=== PATIENT | male | born 1960 | race African-American/Black ===

== ENCOUNTER 2018-05-05 19:37 | Inpatient (IN) | payer MEDICARE, MEDICAID ==
[~2018-05-05] VITALS: Ht 175.3 cm; Wt 82.6 kg
[~2018-05-05 19:37] MED LIST: ASPIRIN EC81 MG ORAL; BENADRYL50 MG ORAL; CATAPRES0.2 MG ORAL; CLONIDINE 0.2M0.2 MG ORAL; DEPAKOTE250 MG PO; DOCUSATE SODIU100 MG ORAL; EPIVIR150 MG ORAL; GUAIFENESIN-DM S5 ML PO; HYDROXYZINE HCL10 M1 PO; INTELENCE100 MG ORAL; ISENTRESS400 MG ORAL; KEPPRA500 MG ORAL; MEPRON750 MG/51 ORAL; METOPROLOL TART50 M1 ORAL; MUPIROCIN22 GM TOPIC; NORCO 5-325 TA1 EACH ORAL; NORVASC10 MG ORAL; ONDANSETRON ODT4 MG ORAL; PROCRIT10000 UNIT SUBQ; RENAGEL400 MG ORAL; TYLENOL650 MG/20. ORAL
[2018-05-05 19:40] VITALS: BP 140/80
[2018-05-05] MEDS ORDERED: LAMIVUDINE150 MG ORAL (20:21)
[2018-05-05] MEDS ORDERED: DESYREL50 MG PO (20:21)
[2018-05-05] MEDS ORDERED: VITAMIN D1000 UNI1 ORAL (20:21)
[2018-05-05] MEDS ORDERED: CALCIUM ACETAT667 M1 PO (20:21)
[2018-05-05] MEDS ORDERED: LACTULOSE10 GM/153 PO (20:21)
[2018-05-05] MEDS ORDERED: DILAUDID 00.5 MG/0.1 IJ (20:21)
[2018-05-05] MEDS ORDERED: INTELENCE200 MG ORAL (20:21)
[2018-05-05] MEDS ORDERED: NEURONTIN300 MG ORAL (20:21)
[2018-05-05] MEDS ORDERED: TEMAZEPAM15 MG ORAL (20:21)
[2018-05-05] MEDS ORDERED: RENVELA800 MG ORAL (20:21)
[2018-05-05] MEDS ORDERED: PAROXETINE HCL20 MG PO (20:21)
[2018-05-05] MEDS ORDERED: SIMETHICONE80 M1 PO ×2 (20:21)
[2018-05-05] MEDS ORDERED: Norco 5mg/325mg tab PO ONE (20:30)
[2018-05-05 20:36] LABS: ANION GAP 9 mmol/L (5-15); BASOPHILS % (AUTO) 1.1 % (0.0-2.0); BLOOD UREA NITROGEN 48 mg/dL (7-18); CALCIUM 9.4 MG/DL (8.5-10.1); CARBON DIOXIDE 30 MMOL/L (21-32); CHLORIDE 95 MMOL/L (98-107); CREATININE 11.9 MG/DL (0.55-1.30); EOSINOPHILS % (AUTO) 2.4 % (0.0-3.0); HEMATOCRIT 31.4 % (42.0-52.0); HEMOGLOBIN 10.9 G/DL (14.2-18.0); MEAN CORPUSCULAR VOLUME 94 FL (80-99); NEUTROPHILS % (AUTO) 65.4 % (45.0-75.0); PLATELET COUNT 201 K/UL (150-450); POTASSIUM 4.8 MMOL/L (3.5-5.1); RED BLOOD COUNT 3.32 M/UL (4.70-6.10); RED CELL DISTRIBUTION WIDTH 13.5 % (11.6-14.8); SODIUM 134 MMOL/L (136-145); WHITE BLOOD COUNT 6.4 K/UL (4.8-10.8)
[2018-05-05 20:41] LABS: ALANINE AMINOTRANSFERASE 40 U/L (12-78); ALBUMIN 3.5 G/DL (3.4-5.0); ALBUMIN/GLOBULIN RATIO 0.6 (1.0-2.7); ALKALINE PHOSPHATASE 100 U/L (46-116); ASPARTATE AMINO TRANSFERASE 34 U/L (15-37); BILIRUBIN,TOTAL 0.4 MG/DL (0.2-1.0)
[2018-05-05] MEDS ORDERED: Acetaminophen 650mg/20.3ml ORAL PRN (22:45)
--- NOTE | 2018-05-05 22:58 | Emergency Room Report ---
History of Present Illness General Chief Complaint: Pain Source: Patient, Medical Record Present Illness HPI 58-year-old male presents ED for evaluation. Sent here from assisted facility for evaluation of right leg pain and right shoulder pain. States she' s been having the symptoms for the last month. Denies any trauma. States pain started with his right ankle and is getting progressively worse. Radiating up to his hip. Sharp, 10 out of 10. Unable to bear weight. Also complaining of pain to his right shoulder. States he's been evaluated by multiple doctors but states that symptoms are not improving. Denies leg swelling. Denies chest pain or shortness of breath. History of end-stage renal disease. Compliant with his dialysis. No other aggravating relieving factors. Denies any other associated symptoms Allergies: Coded Allergies: MORPHINE (Verified Allergy, Unknown, 05/05/18) Skin reaction Patient History Past Medical History: HTN, seizures, renal disease, dialysis Past Surgical History: none Pertinent Family History: none Social History: Denies: smoking, alcohol use, drug use Immunizations: UTD Reviewed Nursing Documentation: PMH: Agreed; PSxH: Agreed Nursing Documentation-PMH Past Medical History: No History, Except For Hx Cardiac Problems: Yes Hx Hypertension: Yes Hx Cancer: No Hx Gastrointestinal Problems: Yes - pancreatitis Hx Dialysis: Yes - ESRD, anemia in CKD Hx Neurological Problems: No Hx Seizures: Yes - epilepsy Hx Headaches: Yes Review of Systems All Other Systems: negative except mentioned in HPI Physical Exam Vital Signs Date Time Temp Pulse Resp B/P (MAP) Pulse Ox O2 Delivery O2 Flow Rate FiO2 05/05/18 19:31 98.8 87 16 133/88 91 Room Air Sp02 EP Interpretation: reviewed, normal General Appearance: no apparent distress, alert, GCS 15, non-toxic Head: normocephalic, atraumatic Eyes: bilateral eye normal inspection, bilateral eye PERRL ENT: hearing grossly normal, normal pharynx, no angioedema, normal voice Neck: full range of motion, supple/symm/no masses Respiratory: chest non-tender, lungs clear, normal breath sounds, speaking full sentences Cardiovascular #1: regular rate, rhythm, no edema Cardiovascular #2: 2+ carotid (R), 2+ carotid (L), 2+ radial (R), 2+ radial (L) , 2+ dorsalis pedis (R), 2+ dorsalis pedis (L) Gastrointestinal: normal bowel sounds, non tender, soft, non-distended, no guarding, no rebound Rectal: deferred Genitourinary: normal inspection, no CVA tenderness Musculoskeletal: back normal, gait/station normal, normal range of motion, calf tenderness, tender - R shoulder Neurologic: alert, oriented x3, responsive, motor strength/tone normal, sensory intact, speech normal Psychiatric: judgement/insight normal, memory normal, mood/affect normal, no suicidal/homicidal ideation Reflexes: 3+ bicep (R), 3+ bicep (L), 3+ tricep (R), 3+ tricep (L), 3+ knee (R) , 3+ knee (L) Skin: normal color, no rash, warm/dry, well hydrated Lymphatic: no adenopathy Medical Decision Making Diagnostic Impression: Primary Impression: Intractable pain Additional Impression: ESRD on dialysis ER Course Hospital Course 58 yo M presents to ED c/o RLE pain. 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 After initial history and physical I ordered labs, pain meds and imaging studies Labs - no leukocytosis, Hb/Hct stable. bun/cr elevated CT L-spine shows DJD CT pelvis unremarkable Right shoulder x-ray negative Right lower extremity venous duplex negative discussed findings with patient. Patient states he is still unable to walk. Still has pain. Case discussed with and he agreed to accept the patient to his service for further care and support I feel this is a highly complex case requiring extensive working including EKG/ Rhythm strip, Xray/CT/US, Blood/urine lab work, repeat exams while in ED, and administration of strong opiates/narcotics for pain control, admission to hospital or close patient follow up. Diagnosis -intractable pain, ERSD on dilaysis Patient admitted to floor in serious condition Labs Test 05/05/18 20:10 White Blood Count 6.4 K/UL (4.8-10.8) Red Blood Count 3.32 M/UL (4.70-6.10) Hemoglobin 10.9 G/DL (14.2-18.0) Hematocrit 31.4 % (42.0-52.0) Mean Corpuscular Volume 94 FL (80-99) Mean Corpuscular Hemoglobin 32.8 PG (27.0-31.0) Mean Corpuscular Hemoglobin Concent 34.8 G/DL (32.0-36.0) Red Cell Distribution Width 13.5 % (11.6-14.8) Platelet Count 201 K/UL (150-450) Mean Platelet Volume 5.3 FL (6.5-10.1) Neutrophils (%) (Auto) 65.4 % (45.0-75.0) Lymphocytes (%) (Auto) 22.0 % (20.0-45.0) Monocytes (%) (Auto) 9.0 % (1.0-10.0) Eosinophils (%) (Auto) 2.4 % (0.0-3.0) Basophils (%) (Auto) 1.1 % (0.0-2.0) Sodium Level 134 MMOL/L (136-145) Potassium Level 4.8 MMOL/L (3.5-5.1) Chloride Level 95 MMOL/L (98-107) Carbon Dioxide Level 30 MMOL/L (21-32) Anion Gap 9 mmol/L (5-15) Blood Urea Nitrogen 48 mg/dL (7-18) Creatinine 11.9 MG/DL (0.55-1.30) Estimat Glomerular Filtration Rate 5.3 mL/min (>60) Glucose Level 110 MG/DL (74-106) Calcium Level 9.4 MG/DL (8.5-10.1) Total Bilirubin 0.4 MG/DL (0.2-1.0) Aspartate Amino Transf (AST/SGOT) 34 U/L (15-37) Alanine Aminotransferase (ALT/SGPT) 40 U/L (12-78) Alkaline Phosphatase 100 U/L (46-116) Total Protein 9.3 G/DL (6.4-8.2) Albumin 3.5 G/DL (3.4-5.0) Globulin 5.8 g/dL Albumin/Globulin Ratio 0.6 (1.0-2.7) Other X-Ray Diagnostic Results Other X-Ray Diagnostic Results : X-Ray ordered: R shoulder # of Views/Limited Vs Complete: 3 View Indication: Pain EP Interpretation: Yes Interpretation: no dislocation, no soft tissue swelling, no fractures Impression: No acute disease Electronically Signed by: Electronically signed by Salbador Irizarry MD CT/MRI/US Diagnostic Results CT/MRI/US Diagnostic Results #1: Imaging Test Ordered: CT L spine Impression DJD. no acute process CT/MRI/US Diagnostic Results #2: Imaging Test Ordered: CT Pelvis Impression no acute process CT/MRI/US Diagnostic Results #3: Imaging Test Ordered: Venous Duplex Impression no evidence of DVT to RLE Last Vital Signs Date Time Temp Pulse Resp B/P (MAP) Pulse Ox O2 Delivery O2 Flow Rate FiO2 05/05/18 19:40 98.9 82 19 140/80 98 Nasal Cannula Status: improved Disposition: ADMITTED INPATIENT Condition: Serious Referrals: NON PHYSICIAN (PCP) Salbador Irizarry MD May 05, 2018 22:58
[2018-05-05 23:20] VITALS: BP 137/77
[2018-05-06 00:05] VITALS: BP 148/87
[2018-05-06] MEDS: HYDROmorphone 2mg tab ORAL PRN ×3 (00:42→15:53)
[2018-05-06 04:00] VITALS: BP 143/82
[2018-05-06 08:00] VITALS: BP 143/90
[2018-05-06] MEDS: PARoxetine 20mg tab ORAL SCH ×2 (08:23→08:40)
[2018-05-06] MEDS: Aspirin EC 81mg tab ORAL SCH (08:47)
[2018-05-06] MEDS ORDERED: cloNIDine 0.2mg Tab ORAL SCH (09:00)
[2018-05-06] MEDS: Isentress 400mg tab ORAL SCH ×2 (09:18→20:51)
[2018-05-06] MEDS: Etravirine 100mg tab ORAL SCH ×2 (09:18→20:51)
[2018-05-06] MEDS: Atovaquone 750mg/5ml Susp ORAL SCH ×2 (09:19→17:24)
--- NOTE | 2018-05-06 09:44 | History and Physical ---
History of Present Illness General Date patient seen: May 06, 2018 Time patient seen: 09:18 Reason for Hospitalization: Pain Present Illness HPI 58 yo male with h/o esrd on hd presents from SNF for right leg and shoulder pain. States this has been going on for the past month and has been worsening. Denies trauma. states pain is 10/10 in severity. Patient states it feels like pain is radiating down his leg, hurts to move right leg, says when he walks feels like shooting pain. Denies any swelling of the leg, denies cp or sob. patient underwent thorough imaging in ED.CT L-spine shows DJD, CT pelvis unremarkable, Right shoulder x-ray negative, Right lower extremity venous duplex negative social hx: reviewed, denies any smoking, drinking or drug use fam hx: reviewed, denies any sig past fam hx code status reviewed, FULL CODE. Allergies: Coded Allergies: MORPHINE (Verified Allergy, Unknown, 05/05/18) Skin reaction Medication History Scheduled Amlodipine Besylate (Norvasc), 10 MG ORAL DAILY, (Reported) Amlodipine Besylate (Norvasc), 2.5 MG ORAL DAILY, (Reported) Aspirin Ec* (Aspirin Ec*), 81 MG ORAL DAILY, (Reported) Atovaquone* (Mepron*), 750 MG ORAL TWICE A DAY, (Reported) Atovaquone* (Mepron*), 1,500 MG ORAL DAILY, (Reported) Calcium Acetate (Calcium Acetate), 667 MG PO BID, (Reported) Cholecalciferol (Vitamin D3)* (Vitamin D*), 1,000 UNIT ORAL DAILY, (Reported) Clonidine HCl (Clonidine HCl), 0.2 MG ORAL EVERY 12 HOURS, (Reported) Divalproex Sodium* (Depakote*), 250 MG PO Q12HR, (Reported) Docusate Sodium* (Docusate Sodium*), 100 MG ORAL TWICE A DAY, (Reported) Epoetin Dario (Procrit), 10,000 UNIT SUBQ 3XW, (Reported) Etravirine (Intelence), 200 MG ORAL BID, (Reported) Gabapentin (Neurontin), 300 MG ORAL THREE TIMES A DAY, (Reported) Guaifenesin/Dextromethorphan (Guaifenesin-Dm Solution), 10 ML PO Q4HR, (Reported ) Lamivudine (Lamivudine), 150 MG ORAL 3XW, (Reported) Levetiracetam (Keppra), 500 MG ORAL EVERY 12 HOURS, (Reported) Mupirocin* (Mupirocin*), 1 APPLIC TOPIC BID, (Reported) Paroxetine Hcl* (Paxil*), 20 MG PO DAILY, (Reported) Raltegravir (Isentress), 400 MG ORAL Q12HR, (Reported) Sevelamer Carbonate (Renvela), 800 MG ORAL BID, (Reported) Sevelamer HCl (Renagel), 800 MG ORAL THREE TIMES A DAY, (Reported) Temazepam (Temazepam*), 15 MG ORAL BEDTIME, (Reported) Trazodone Hcl (Desyrel), 50 MG PO DAILY, (Reported) Scheduled PRN Acetaminophen (Acetaminophen), 650 MG ORAL Q6H PRN for Prn Headache/Temp > 101, (Reported) Diphenhydramine HCl (Diphenhydramine HCl), 50 MG ORAL Q6H PRN for Itching, ( Reported) Hydrocodone Bit/Acetaminophen 5-325* (Stafford 5-325*), 1 TAB ORAL Q6H PRN for For Pain, (Reported) Ondansetron Odt* (Zofran Odt*), 4 MG ORAL Q6HR PRN for Nausea & Vomiting, ( Reported) Miscellaneous Medications Hydromorphone HCl/Pf (Dilaudid 0.5 mg/0.5 ml Syringe), 0.5 MG IJ, (Reported) Hydroxyzine Hcl (Hydroxyzine Hcl), MG PO, (Reported) Lactulose (Lactulose), 10 GM PO, (Reported) Simethicone (Simethicone), 80 MG PO, (Reported) Patient History History Provided By: Patient Healthcare decision maker Resuscitation status Full Code Advanced Directive on File Yes Review of Systems Constitutional: Denies: chills, sweats, fever, malaise, weakness Eye: Denies: eye pain, blurred vision, tearing, double vision, nose pain, nose congestion, acuity changes, discharge ENT: Denies: ear pain, ear discharge, nose pain, nose congestion, throat pain, throat swelling, mouth pain, hearing loss, nasal discharge, other Respiratory: Denies: cough, orthopnea, shortness of breath, stridor, wheezing, DE, sputum Cardiovascular: Denies: chest pain, edema, palpitations, syncope, PND Gastrointestinal: Denies: abdominal pain, constipation, diarrhea, nausea, vomiting, melena, hematemesis Genitourinary: Reports: other; Denies: discharge, dysuria, frequency, hematuria , pain, retention, incontinence, urgency, vag bleed/dc Musculoskeletal: Reports: back pain, other - right leg pain. right shoulder pain; Denies: gout, joint pain, joint swelling, muscle pain, muscle stiffness Skin: Denies: rash, change in color, change in hair/nails, dryness, lesions Psychiatric: Denies: prior hx, anxiety, depressed feelings, emotional problems , SI, HI, hallucinations Neurological: Denies: headache, numbness, paresthesia, seizure, tingling, tremors, focal weakness, syncope, dizziness Endocrine: Denies: excessive sweating, flushing, intolerance to temperature, increased thirst, increased urine, unexplained weight loss Hematologic/Lymphatic: Reports: no symptoms; Denies: anemia, blood clots, easy bleeding, easy bruising, swollen glands, diathesis Physical Exam General Appearance: WD/WN, no apparent distress, alert Lines, tubes and drains: peripheral HEENT: normocephalic, atraumatic, anicteric Neck: non-tender, normal alignment, supple, normal inspection Respiratory/Chest: chest wall non-tender, lungs clear, normal breath sounds, no respiratory distress, no accessory muscle use Cardiovascular/Chest: normal peripheral pulses, normal rate, regular rhythm Abdomen: normal bowel sounds, non tender, soft, no organomegaly, no mass Extremities: normal range of motion - +TTP right piriformis muscle, pain radiating down his leg, pain in back radiating to the foot when lifting right leg up. strength intact. 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, no motor/sensory deficits, alert, oriented x 3 Musculoskeletal: normal muscle bulk Last 24 Hour Vital Signs Date Time Temp Pulse Resp B/P (MAP) Pulse Ox O2 Delivery O2 Flow Rate FiO2 05/06/18 08:45 143/90 05/06/18 08:39 71 143/90 05/06/18 08:00 96.8 71 18 143/90 (107) 97 05/06/18 04:00 98.0 69 17 143/82 (102) 97 05/06/18 01:12 98.6 05/06/18 00:05 Room Air 05/06/18 00:05 98.6 79 18 148/87 (107) 96 05/05/18 23:44 97.5 77 19 137/77 100 Room Air 05/05/18 23:20 97.5 77 19 137/77 100 Room Air 05/05/18 19:40 98.9 82 19 140/80 98 Nasal Cannula 05/05/18 19:31 98.8 87 16 133/88 91 Room Air Intake and Output 05/05/18 05/06/18 19:00 07:00 Intake Total 730 ml Balance 730 ml Intake Oral 730 ml # Voids 1 Laboratory Tests Test 05/05/18 20:10 White Blood Count 6.4 K/UL (4.8-10.8) Red Blood Count 3.32 M/UL (4.70-6.10) L Hemoglobin 10.9 G/DL (14.2-18.0) L Hematocrit 31.4 % (42.0-52.0) L Mean Corpuscular Volume 94 FL (80-99) Mean Corpuscular Hemoglobin 32.8 PG (27.0-31.0) H Mean Corpuscular Hemoglobin Concent 34.8 G/DL (32.0-36.0) Red Cell Distribution Width 13.5 % (11.6-14.8) Platelet Count 201 K/UL (150-450) Mean Platelet Volume 5.3 FL (6.5-10.1) L Neutrophils (%) (Auto) 65.4 % (45.0-75.0) Lymphocytes (%) (Auto) 22.0 % (20.0-45.0) Monocytes (%) (Auto) 9.0 % (1.0-10.0) Eosinophils (%) (Auto) 2.4 % (0.0-3.0) Basophils (%) (Auto) 1.1 % (0.0-2.0) Sodium Level 134 MMOL/L (136-145) L Potassium Level 4.8 MMOL/L (3.5-5.1) Chloride Level 95 MMOL/L (98-107) L Carbon Dioxide Level 30 MMOL/L (21-32) Anion Gap 9 mmol/L (5-15) Blood Urea Nitrogen 48 mg/dL (7-18) H Creatinine 11.9 MG/DL (0.55-1.30) H Estimat Glomerular Filtration Rate 5.3 mL/min (>60) Glucose Level 110 MG/DL (74-106) H Calcium Level 9.4 MG/DL (8.5-10.1) Total Bilirubin 0.4 MG/DL (0.2-1.0) Aspartate Amino Transf (AST/SGOT) 34 U/L (15-37) Alanine Aminotransferase (ALT/SGPT) 40 U/L (12-78) Alkaline Phosphatase 100 U/L (46-116) Total Protein 9.3 G/DL (6.4-8.2) H Albumin 3.5 G/DL (3.4-5.0) Globulin 5.8 g/dL Albumin/Globulin Ratio 0.6 (1.0-2.7) L Microbiology Date/Time Source Procedure Growth Status 05/05/18 23:35 Rectum Received Height (Feet): 5 Height (Inches): 9.00 Weight (Pounds): 182 Medications Current Medications Medications (Trade) Dose Ordered Sig/Christiano Route PRN Reason Start Time Stop Time Status Last Admin Dose Admin Acetaminophen (Tylenol) 650 mg Q4HR PRN ORAL Mild Pain/Temp > 100.5 05/05/18 22:45 06/04/18 22:44 Amlodipine Besylate (Norvasc) 2.5 mg DAILY ORAL 05/06/18 09:00 06/05/18 08:59 05/06/18 08:39 Aspirin (Ecotrin) 81 mg DAILY ORAL 05/06/18 09:00 06/05/18 08:59 05/06/18 08:47 Atovaquone (Mepron Susp) 750 mg BID ORAL 05/06/18 09:00 06/05/18 08:59 Clonidine HCl (Catapres tab) 0.2 mg EVERY 12 HOURS ORAL 05/06/18 09:00 06/05/18 08:59 05/06/18 08:45 Diphenhydramine HCl (Benadryl) 50 mg Q6H PRN ORAL Itching 05/05/18 22:45 06/04/18 22:44 05/06/18 02:27 Divalproex Sodium (Depakote) 250 mg Q12HR ORAL 05/06/18 09:00 06/05/18 08:59 05/06/18 08:43 Etravirine (Intelence) 200 mg EVERY 12 HOURS ORAL 05/06/18 09:00 06/05/18 08:59 Hydromorphone HCl (Dilaudid) 1 mg EVERY 6 HOURS PRN ORAL pain 05/05/18 23:00 05/12/18 22:59 05/06/18 08:22 Hydroxyzine HCl (Vistaril) 10 mg DAILY ORAL 05/06/18 09:00 06/05/18 08:59 05/06/18 08:42 Lamivudine (Epivir) 150 mg 3XW ORAL 05/06/18 09:00 06/05/18 08:59 Levetiracetam (Keppra) 500 mg EVERY 12 HOURS ORAL 05/06/18 09:00 06/05/18 08:59 05/06/18 08:46 Ondansetron HCl (Zofran ODT) 4 mg Q6HR PRN ORAL Nausea & Vomiting 05/05/18 22:45 06/04/18 22:44 Paroxetine HCl (Paxil) 20 mg DAILY ORAL 05/06/18 09:00 06/05/18 08:59 05/06/18 08:40 Raltegravir (Isentress) 400 mg EVERY 12 HOURS ORAL 05/06/18 09:00 06/05/18 08:59 Sevelamer Carbonate (Renvela) 800 mg BID ORAL 05/06/18 09:00 06/05/18 08:59 Temazepam (Restoril) 15 mg BEDTIME ORAL 05/06/18 21:00 05/13/18 20:59 Trazodone HCl (Desyrel) 50 mg QHS ORAL 05/06/18 21:00 06/05/18 20:59 Assessment/Plan Problem List: (1) Acute back pain with sciatica ICD Codes: M54.40 - Lumbago with sciatica, unspecified side SNOMED: 605240602 (2) Right leg pain ICD Codes: M79.604 - Pain in right leg SNOMED: 773501421 (3) Intractable pain ICD Codes: R52 - Pain, unspecified SNOMED: 90824569 (4) Right shoulder pain ICD Codes: M25.511 - Pain in right shoulder SNOMED: 02735683, 62953510 (5) Renovascular hypertension ICD Codes: I15.0 - Renovascular hypertension SNOMED: 075580835 (6) HIV disease ICD Codes: B20 - Human immunodeficiency virus [HIV] disease SNOMED: 03874588 (7) Weakness ICD Codes: R53.1 - Weakness SNOMED: 66635463 (8) ESRD on dialysis ICD Codes: N18.6 - End stage renal disease; Z99.2 - Dependence on renal dialysis SNOMED: 086466143 Status: stable Assessment/Plan #acute back pain with sciatica #right leg pain #intractable pain #weakness - on ED admission CT L-spine shows DJD, CT pelvis unremarkable, Right lower extremity venous duplex negative - considering concerns of sciatica, im concerned for disc herniation vs piriformis sx - MRI lumbar spine wo con ordered stat - continue pain control with IV dilaudid #Right shoulder pain - Right shoulder x-ray negative - likely muscular pain, strain from being in pain, no trauma to the area - antiinflammatories prn - has normal ROM - may need outpatient f/u #ESRD on HD - nephro consulted - gets HD MWF - plan HD today #HIV disease - resume home meds - atovaquone, ipivir, etelence - Pharmacy confirming meds - stable #Renovascular HTN - home meds resumed - vitals stable ppx: scd, heparin diet: renal HD diet Patient will need at least 24 hours stay for full workup and care admit observation I have spent over 61 minutes on this patient's case, and over 39 minutes was dedicated to counseling and/or care coordination. Bravo Doty MD May 06, 2018 09:44
--- NOTE | 2018-05-06 10:38 | Diagnostic Imaging Report ---
Indication: Pelvic pain x6 weeks Technique: Noncontrast spiral acquisitions obtained through the pelvis. Multiplanar reconstructions generated. Total dose length product 788.96 mGycm. CTDIvol(s) 13.6,11.25 mGy. Dose reduction achieved using automated exposure control Comparison: none Findings: There are mild degenerative changes of both hips, with subchondral cysts on the acetabular side. The joint spaces are preserved, however. No acute fractures. No dislocations. There are also degenerative changes of the lumbosacral junction. There is an incompletely descended right testicle. There is a tiny fat-containing umbilical hernia. The remaining pelvic viscera are unremarkable. Impression: No acute bony trauma Mild degenerative changes of the hips. Degenerative changes of the lumbosacral junction Incompletely distended right testicle Tiny fat-containing of multiple hernia incidentally noted This agrees with the preliminary interpretation provided overnight by [facility]. The CT scanner at [facility] is accredited by the [employer] and the scans are performed using protocols designed to limit radiation exposure to as low as reasonably achievable to attain images of sufficient resolution adequate for diagnostic evaluation.
--- NOTE | 2018-05-06 11:26 | Diagnostic Imaging Report ---
Indications: Pain x6 weeks Technique: Spiral acquisitions obtained through the lumbar spine. Multiplanar reconstructions were generated. No IV contrast utilized. Total dose length product 788.96 mGycm. CTDIvol(s) 13.6,11.25 mGy. Dose reduction achieved using automated exposure control Comparison: none Findings: 111 is normal. Vertebral body heights are preserved. There is degenerative disc narrowing at L5-S1. The remaining disc spaces are preserved. No acute fractures. No dislocations. Unusual well-circumscribed tubular lucency is seen within the right L4 pedicle extending into the vertebral body. There is mild circumferential annular bulge at L3-4. This does not appear to significantly compromise the spinal canal or neural foramina. There is circumferential annular bulge at L4-5. This does not significantly compromise the spinal canal or neural foramina. At L5-S1, there is degenerative disc narrowing as mentioned earlier. There is circumferential annular bulge. This, in combination with facet hypertrophy, may results in mild to moderate compromise of the bilateral neural foramina. No significant spinal canal narrowing. Included extra spinal soft tissues are remarkable for the presence of what appear to be embolization coils in the left kidney. The left kidney is atrophic. Impression: No acute bony trauma Degenerative changes, as described Lucency within the right side of L4, appearance suggestive of an iatrogenic defect such as from prior biopsy. Correlate with any history of prior instrumentation Atrophic left kidney with evidence of prior vascular embolization procedure This agrees with the preliminary interpretation provided overnight by [facility]. The CT scanner at [facility] is accredited by the [employer] and the scans are performed using protocols designed to limit radiation exposure to as low as reasonably achievable to attain images of sufficient resolution adequate for diagnostic evaluation.
--- NOTE | 2018-05-06 11:36 | Diagnostic Imaging Report ---
Indication: Shoulder pain Technique: 3 views of the right shoulder Comparison: none Findings: No acute fractures. No dislocations. Joint spaces are preserved Impression: No acute process
--- NOTE | 2018-05-06 11:39 | Diagnostic Imaging Report ---
Indication: Right leg pain Technique: Grayscale and duplex images of the right lower extremity veins Comparison: none Findings: Grayscale and color Doppler imaging demonstrates no evidence of intraluminal thrombus. Normal phasic Doppler waveforms, demonstrating normal augmentation response. No evidence of valvular insufficiency. Normal compressibility of all deep veins Impression: Negative for right lower extremity deep venous thrombosis
[2018-05-06 12:00] VITALS: BP 102/69
--- NOTE | 2018-05-06 13:22 | Diagnostic Imaging Report ---
Indication: Severe low back pain, extending into hips and legs Technique: Sagittal T1 and T2 fast spin echo, sagittal STIR, axial T1 and T2 fast spin-echo images of the lumbar spine Comparison: Reference made to CT scan of earlier the same day Findings: Vertebral body marrow signal is slightly heterogeneous the lower spine, likely indicating Modic type degenerative changes. No focal marrow abnormality demonstrated and no evidence of marrow edema. The bony alignment is normal. Vertebral body heights are preserved. No findings are seen corresponding to the lucency in the right L4 pedicle seen on prior CT. The conus medullaris terminates at the mid L2 level. There is a lipoma of the filum terminale extending from the conus to the distal end of the thecal sac At L5-S1, there is moderate degenerative disc narrowing. There is circumferential annular bulge. This does not significantly narrow the spinal canal but may impinge on the bilateral lateral recesses. There is moderate compromise of the bilateral neural foramina due to the bulging disc as well as proliferative changes of the adjacent facets. At L4-5, there is mild circumferential annular bulge. The disc space is preserved. No significant compromise of the spinal canal. There may be slight compromise of the right lateral recess by the bulging disc. There may be minimal compromise of the bilateral neural foramina by the bulging disc. At the remaining disc levels, no significant disc bulge or protrusion, spinal stenosis, or neural foraminal stenosis. No significant disc narrowing The included extraspinal soft tissues are remarkable for the presence of bilateral renal cysts. These are much more apparent on this study than on recent CT. The left kidney is atrophic, as previously described. Impression: Lipoma of the filum terminale. No definite findings to suggest tethered cord syndrome, as the conus medullaris terminates at mid L2 and the distribution of the nerve roots appears unremarkable. Degenerative changes at L5-S1, and to a lesser extent L4-5, as detailed No acute bony trauma above.
--- NOTE | 2018-05-06 14:17 | Consultation ---
Consult Note Consult Note asked to manage dialysis needs at hospital been on HD for past 2 years 58-year-old male presents ED for evaluation. Sent here from alf facility for evaluation of right leg pain and right shoulder pain. States she' s been having the symptoms for the last month. Denies any trauma. States pain started with his right ankle and is getting progressively worse. Radiating up to his hip. Sharp, 10 out of 10. Unable to bear weight. Also complaining of pain to his right shoulder. States he's been evaluated by multiple doctors but states that symptoms are not improving. Denies leg swelling. Denies chest pain or shortness of breath. History of end-stage renal disease. Compliant with his dialysis. No other aggravating relieving factors. Denies any other associated symptoms Coded Allergies: MORPHINE (Verified Allergy, Unknown, 05/05/18) Skin reaction Past Medical History: HTN, seizures, renal disease, dialysis Past Medical History: No History, Except For Hx Cardiac Problems: Yes Hx Hypertension: Yes Hx Gastrointestinal Problems: Yes - pancreatitis Hx Dialysis: Yes - ESRD, anemia in CKD Hx Seizures: Yes - epilepsy Hx Headaches: Yes interviewed, examined Assessment/Plan ESRD Intractible pain Right leg- shoulder HTN HIV disease Pain management dialysis as needed keep bp in check per orders Hiram Zamarripa MD May 06, 2018 14:17
[2018-05-06 16:00] VITALS: BP 117/75
[2018-05-06] MEDS: Cyclobenzaprine 10mg Tab ORAL SCH (17:24)
[2018-05-06] MEDS: Docusate 100mg cap ORAL SCH (17:24)
[2018-05-06] MEDS ORDERED: Docusate 100mg cap ORAL SCH (18:00)
[2018-05-06 20:00] VITALS: BP 114/71
[2018-05-06] MEDS ORDERED: TraZODone 50mg tab ORAL SCH (21:00)
[2018-05-07 04:00] VITALS: BP 118/74
[2018-05-07] MEDS: HYDROmorphone 2mg tab ORAL PRN ×2 (05:27→11:44)
[2018-05-07 06:38] LABS: BASOPHILS % (AUTO) 0.7 % (0.0-2.0); EOSINOPHILS % (AUTO) 2.5 % (0.0-3.0); HEMATOCRIT 28.1 % (42.0-52.0); HEMOGLOBIN 9.4 G/DL (14.2-18.0); LYMPHOCYTES % (AUTO) 26.7 % (20.0-45.0); MEAN CORPUSCULAR VOLUME 95 FL (80-99); MONOCYTES % (AUTO) 7.8 % (1.0-10.0); NEUTROPHILS % (AUTO) 62.2 % (45.0-75.0); PLATELET COUNT 172 K/UL (150-450); RED BLOOD COUNT 2.97 M/UL (4.70-6.10); RED CELL DISTRIBUTION WIDTH 13.5 % (11.6-14.8); WHITE BLOOD COUNT 6.7 K/UL (4.8-10.8)
[2018-05-07 07:04] LABS: ALANINE AMINOTRANSFERASE 32 U/L (12-78); ALBUMIN 3.3 G/DL (3.4-5.0); ALBUMIN/GLOBULIN RATIO 0.6 (1.0-2.7); ALKALINE PHOSPHATASE 89 U/L (46-116); ANION GAP 12 mmol/L (5-15); ASPARTATE AMINO TRANSFERASE 19 U/L (15-37); BILIRUBIN,TOTAL 0.4 MG/DL (0.2-1.0); BLOOD UREA NITROGEN 75 mg/dL (7-18); CARBON DIOXIDE 29 MMOL/L (21-32); CHLORIDE 96 MMOL/L (98-107); CHOLESTEROL 138 MG/DL (< 200); CREATINE KINASE 152 U/L (26-308); CREATININE 16.1 MG/DL (0.55-1.30); FERRITIN 718 NG/ML (8-388); GAMMA GLUTAMYL TRANSPEPTIDASE 18 U/L (5-85); HDL CHOLESTEROL 68 MG/DL (40-60); PHOSPHORUS 6.8 MG/DL (2.5-4.9); POTASSIUM 5.3 MMOL/L (3.5-5.1); SODIUM 137 MMOL/L (136-145); TRIGLYCERIDES 34 MG/DL (30-150)
[2018-05-07] MEDS ORDERED: CYCLOBENZAPRINE10 MG ORAL (07:28)
--- NOTE | 2018-05-07 07:39 | Discharge Summary ---
Discharge Summary Hospital Course Date of Admission May 05, 2018 at 21:58 Date of Discharge 05/07/18 Admitting Diagnosis intractable leg pain HPI Mohamud Lyles is a 58 year old male who was admitted on May 05, 2018 at 21:58 for Intractable Leg Pain He has h/o esrd on hd presents from SNF for right leg and shoulder pain. States this has been going on for the past month and has been worsening. Denies trauma. states pain is 10/10 in severity. Patient states it feels like pain is radiating down his leg, hurts to move right leg, says when he walks feels like shooting pain. Denies any swelling of the leg, denies cp or sob. patient underwent thorough imaging in ED.CT L-spine shows DJD, CT pelvis unremarkable, Right shoulder x-ray negative, Right lower extremity venous duplex negative MRI lumbar spine wo contrast completed as well due to concerns of cord compression, reviewed, impression: Lipoma of the filum terminale. No definite findings to suggest tethered cord syndrome, as the conus medullaris terminates at mid L2 and the distribution of the nerve roots appears unremarkable. Degenerative changes at L5-S1, and to a lesser extent L4-5, as detailed. No acute bony trauma above. during evaluation patient resting calmly, not in any distress. When patient does see you, patient starts acting as if he is in excruciating pain although just recently receiving dilaudid. When discussed with patient that all imaging results were negative for any cause of pain, bony structures in tact, nerves intact, no cord compression.. patient remains calm and started becoming sad and started to tear while not disagreeing with the results of the studies or trying to convince me that there is something wrong. Even on physical examination patient does not complain of pain to palpation of the back or extremities, normal ROM. Discussed with patient that this is likely in his mind and is likely a psychosomatic cause, patient shows understands and upon discussing discharge patient states he is willing to go back to his SNF today. will discharge him with a weeks worth of flexeril and discussed that he can use a heat pack if he feels. patient to be dc'd back to [facility] Physical Exam: General Appearance: WD/WN, no apparent distress, alert Lines, tubes and drains: peripheral HEENT: normocephalic, atraumatic, anicteric Neck: non-tender, normal alignment, supple, normal inspection Respiratory/Chest: chest wall non-tender, lungs clear, normal breath sounds, no respiratory distress, no accessory muscle use Cardiovascular/Chest: normal peripheral pulses, normal rate, regular rhythm Abdomen: normal bowel sounds, non tender, soft, no organomegaly, no mass Extremities: normal range of motion, no TTP today of all extremities. 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 - started on cyclobenzaprine, pain improved - likely psychosomatic pain - continue pain control with IV dilaudid #Right shoulder pain - Right shoulder x-ray negative - likely muscular pain, strain from being in pain, no trauma to the area - antiinflammatories prn - has normal ROM - may need outpatient f/u #ESRD on HD - nephro consulted - gets HD MWF - plan HD today #HIV disease - resume home meds - atovaquone, ipivir, etelence - Pharmacy confirming meds - stable #Renovascular HTN - home meds resumed - vitals stable ppx: scd, heparin diet: renal HD diet discharge to SNF I have spent over 36 minutes in coordination of care and discharge of patient. patient shows understanding and is able to verbalize back to me the plan of care and is agreeable Discharge Condition Upon Discharge: stable Discharge Disposition Patient was discharged to [facility] Discharge Diagnoses: (1) ESRD on dialysis (2) Weakness (3) Renovascular hypertension (4) HIV disease (5) Acute back pain with sciatica (6) Right shoulder pain (7) Intractable pain (8) Right leg pain Bravo Doty MD May 07, 2018 07:39
[2018-05-07 08:00] VITALS: BP 100/74
[2018-05-07] MEDS: Isentress 400mg tab ORAL SCH (08:38)
[2018-05-07] MEDS: Etravirine 100mg tab ORAL SCH (08:38)
[2018-05-07] MEDS: PARoxetine 20mg tab ORAL SCH (08:38)
[2018-05-07] MEDS: Cyclobenzaprine 10mg Tab ORAL SCH (08:39)
[2018-05-07] MEDS: Aspirin EC 81mg tab ORAL SCH (08:39)
[2018-05-07] MEDS: Docusate 100mg cap ORAL SCH ×2 (08:40→13:00)
[2018-05-07] MEDS: Atovaquone 750mg/5ml Susp ORAL SCH (08:40)
--- NOTE | 2018-05-07 10:54 | Nephrology Progress Note ---
Assessment/Plan Problem List: (1) HIV disease (2) End stage renal disease on dialysis (3) Hypertensive kidney disease Assessment ESRD Intractible pain Right leg- shoulder HTN HIV disease Plan Pain management dialysis as needed- today keep bp in check per orders Subjective ROS Limited/Unobtainable: No Objective Objective Last 24 Hour Vital Signs Date Time Temp Pulse Resp B/P (MAP) Pulse Ox O2 Delivery O2 Flow Rate FiO2 05/07/18 09:00 Room Air 05/07/18 08:39 71 120/68 05/07/18 08:00 97.4 84 18 100/74 (83) 95 05/07/18 06:00 120/68 05/07/18 04:00 97.0 68 18 118/74 (89) 95 05/06/18 21:00 Room Air 05/06/18 20:44 114/71 05/06/18 20:00 97.5 66 18 114/71 (85) 93 05/06/18 16:00 97.3 65 18 117/75 (89) 98 05/06/18 12:00 96.6 64 18 102/69 (80) 96 Intake and Output 05/06/18 05/07/18 18:59 06:59 Intake Total 600 ml 300 ml Balance 600 ml 300 ml Intake Oral 600 ml 300 ml # Voids 1 Laboratory Tests 05/06/18 17:00: C-Reactive Protein, Quantitative 2.5H 05/07/18 05:15: White Blood Count 6.7, Red Blood Count 2.97L, Hemoglobin 9.4L, Hematocrit 28.1L , Mean Corpuscular Volume 95, Mean Corpuscular Hemoglobin 31.5H, Mean Corpuscular Hemoglobin Concent 33.3, Red Cell Distribution Width 13.5, Platelet Count 172, Mean Platelet Volume 5.8L, Neutrophils (%) (Auto) 62.2, Lymphocytes ( %) (Auto) 26.7, Monocytes (%) (Auto) 7.8, Eosinophils (%) (Auto) 2.5, Basophils (%) (Auto) 0.7, Sodium Level 137, Potassium Level 5.3H, Chloride Level 96L, Carbon Dioxide Level 29, Anion Gap 12, Blood Urea Nitrogen 75H, Creatinine 16.1H , Estimat Glomerular Filtration Rate 3.8, Glucose Level 80, Hemoglobin A1c 4.9, Lactic Acid Level 0.80, Uric Acid 8.7H, Calcium Level 9.0, Phosphorus Level 6.8H , Magnesium Level 2.7H, Ferritin 718H, Total Bilirubin 0.4, Gamma Glutamyl Transpeptidase 18, Aspartate Amino Transf (AST/SGOT) 19, Alanine Aminotransferase (ALT/SGPT) 32, Alkaline Phosphatase 89, Total Creatine Kinase 152, Pro-B-Type Natriuretic Peptide 1528H, Total Protein 8.6H, Albumin 3.3L, Globulin 5.3, Albumin/Globulin Ratio 0.6L, Triglycerides Level 34, Cholesterol Level 138, LDL Cholesterol 67, HDL Cholesterol 68H, Cholesterol/HDL Ratio 2.0L, Vitamin B12 Level 1131H, Folate 13.1, Thyroid Stimulating Hormone (TSH) 1.750 Height (Feet): 5 Height (Inches): 9.00 Weight (Pounds): 182 General Appearance: no apparent distress Objective no change Hiram Zamarripa MD May 07, 2018 10:54
[2018-05-07 12:00] VITALS: BP 92/56
[2018-05-07 13:57] VITALS: BP 92/60
[2018-05-07] MEDS ORDERED: NS 500ML ONE (16:29)
[2018-05-07] MEDS ORDERED: Cyclobenzaprine 10mg Tab ORAL SCH (21:00)
--- NOTE | 2018-05-08 06:35 | Consultation ---
Consult Note Consult Note Hematology Oncology Consult Date patient seen: May 07, 2018 Time patient seen: 09:18 Reason for Hospitalization: Pain RFC: Anemia gagandeep HORNE MD: Soren Villatoro ID 58 yo male with h/o esrd on hd presents from SNF for right leg and shoulder pain. States this has been going on for the past month and has been worsening. Denies trauma. states pain is 10/10 in severity. Patient states it feels like pain is radiating down his leg, hurts to move right leg, says when he walks feels like shooting pain. Denies any swelling of the leg, denies cp or sob. patient underwent thorough imaging in ED.CT L-spine shows DJD, CT pelvis unremarkable, Right shoulder x-ray negative, Right lower extremity venous duplex negative Social hx: reviewed, denies any smoking, drinking or drug use Fam hx: reviewed, denies any sig past fam hx Code status reviewed, FULL CODE. Coded Allergies: MORPHINE (Verified Allergy, Unknown, 05/05/18) Skin reaction Medication History Scheduled Amlodipine Besylate (Norvasc), 10 MG ORAL DAILY, (Reported) Amlodipine Besylate (Norvasc), 2.5 MG ORAL DAILY, (Reported) Aspirin Ec* (Aspirin Ec*), 81 MG ORAL DAILY, (Reported) Atovaquone* (Mepron*), 750 MG ORAL TWICE A DAY, (Reported) Atovaquone* (Mepron*), 1,500 MG ORAL DAILY, (Reported) Calcium Acetate (Calcium Acetate), 667 MG PO BID, (Reported) Cholecalciferol (Vitamin D3)* (Vitamin D*), 1,000 UNIT ORAL DAILY, (Reported) Clonidine HCl (Clonidine HCl), 0.2 MG ORAL EVERY 12 HOURS, (Reported) Divalproex Sodium* (Depakote*), 250 MG PO Q12HR, (Reported) Docusate Sodium* (Docusate Sodium*), 100 MG ORAL TWICE A DAY, (Reported) Epoetin Dario (Procrit), 10,000 UNIT SUBQ 3XW, (Reported) Etravirine (Intelence), 200 MG ORAL BID, (Reported) Gabapentin (Neurontin), 300 MG ORAL THREE TIMES A DAY, (Reported) Guaifenesin/Dextromethorphan (Guaifenesin-Dm Solution), 10 ML PO Q4HR, (Reported ) Lamivudine (Lamivudine), 150 MG ORAL 3XW, (Reported) Levetiracetam (Keppra), 500 MG ORAL EVERY 12 HOURS, (Reported) Mupirocin* (Mupirocin*), 1 APPLIC TOPIC BID, (Reported) Paroxetine Hcl* (Paxil*), 20 MG PO DAILY, (Reported) Raltegravir (Isentress), 400 MG ORAL Q12HR, (Reported) Sevelamer Carbonate (Renvela), 800 MG ORAL BID, (Reported) Sevelamer HCl (Renagel), 800 MG ORAL THREE TIMES A DAY, (Reported) Temazepam (Temazepam*), 15 MG ORAL BEDTIME, (Reported) Trazodone Hcl (Desyrel), 50 MG PO DAILY, (Reported) Scheduled PRN Acetaminophen (Acetaminophen), 650 MG ORAL Q6H PRN for Prn Headache/Temp > 101, (Reported) Diphenhydramine HCl (Diphenhydramine HCl), 50 MG ORAL Q6H PRN for Itching, ( Reported) Hydrocodone Bit/Acetaminophen 5-325* ([place] 5-325*), 1 TAB ORAL Q6H PRN for For Pain, (Reported) Ondansetron Odt* (Zofran Odt*), 4 MG ORAL Q6HR PRN for Nausea & Vomiting, ( Reported) Miscellaneous Medications Hydromorphone HCl/Pf (Dilaudid 0.5 mg/0.5 ml Syringe), 0.5 MG IJ, (Reported) Hydroxyzine Hcl (Hydroxyzine Hcl), MG PO, (Reported) Lactulose (Lactulose), 10 GM PO, (Reported) Simethicone (Simethicone), 80 MG PO, (Reported) Patient History History Provided By: Patient Healthcare decision maker Resuscitation status Full Code Advanced Directive on File Yes Review of Systems Constitutional: Denies: chills, sweats, fever, malaise, weakness Eye: Denies: eye pain, blurred vision, tearing, double vision, nose pain, nose congestion, acuity changes, discharge ENT: Denies: ear pain, ear discharge, nose pain, nose congestion, throat pain, throat swelling, mouth pain, hearing loss, nasal discharge, other Respiratory: Denies: cough, orthopnea, shortness of breath, stridor, wheezing, DE, sputum Cardiovascular: Denies: chest pain, edema, palpitations, syncope, PND Gastrointestinal: Denies: abdominal pain, constipation, diarrhea, nausea, vomiting, melena, hematemesis Genitourinary: Reports: other; Denies: discharge, dysuria, frequency, hematuria , pain, retention, incontinence, urgency, vag bleed/dc Musculoskeletal: Reports: back pain, other - right leg pain. right shoulder pain; Denies: gout, joint pain, joint swelling, muscle pain, muscle stiffness Skin: Denies: rash, change in color, change in hair/nails, dryness, lesions Psychiatric: Denies: prior hx, anxiety, depressed feelings, emotional problems , SI, HI, hallucinations Neurological: Denies: headache, numbness, paresthesia, seizure, tingling, tremors, focal weakness, syncope, dizziness Endocrine: Denies: excessive sweating, flushing, intolerance to temperature, increased thirst, increased urine, unexplained weight loss Hematologic/Lymphatic: Reports: no symptoms; Denies: anemia, blood clots, easy bleeding, easy bruising, swollen glands, diathesis Physical Exam General Appearance: WD/WN, no apparent distress, alert Lines, tubes and drains: peripheral HEENT: normocephalic, atraumatic, anicteric Neck: non-tender, normal alignment, supple, normal inspection Respiratory/Chest: chest wall non-tender, lungs clear, normal breath sounds, no respiratory distress, no accessory muscle use Cardiovascular/Chest: normal peripheral pulses, normal rate, regular rhythm Abdomen: normal bowel sounds, non tender, soft, no organomegaly, no mass Extremities: normal range of motion - +TTP right piriformis muscle, pain radiating down his leg, pain in back radiating to the foot when lifting right leg up. strength intact. 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, no motor/sensory deficits, alert, oriented x 3 Musculoskeletal: normal muscle bulk lab Labs Test 05/05/18 20:10 05/06/18 17:00 05/07/18 05:15 White Blood Count 6.4 K/UL (4.8-10.8) 6.7 K/UL (4.8-10.8) Red Blood Count 3.32 M/UL (4.70-6.10) 2.97 M/UL (4.70-6.10) Hemoglobin 10.9 G/DL (14.2-18.0) 9.4 G/DL (14.2-18.0) Hematocrit 31.4 % (42.0-52.0) 28.1 % (42.0-52.0) Mean Corpuscular Volume 94 FL (80-99) 95 FL (80-99) Mean Corpuscular Hemoglobin 32.8 PG (27.0-31.0) 31.5 PG (27.0-31.0) Mean Corpuscular Hemoglobin Concent 34.8 G/DL (32.0-36.0) 33.3 G/DL (32.0-36.0) Red Cell Distribution Width 13.5 % (11.6-14.8) 13.5 % (11.6-14.8) Platelet Count 201 K/UL (150-450) 172 K/UL (150-450) Mean Platelet Volume 5.3 FL (6.5-10.1) 5.8 FL (6.5-10.1) Neutrophils (%) (Auto) 65.4 % (45.0-75.0) 62.2 % (45.0-75.0) Lymphocytes (%) (Auto) 22.0 % (20.0-45.0) 26.7 % (20.0-45.0) Monocytes (%) (Auto) 9.0 % (1.0-10.0) 7.8 % (1.0-10.0) Eosinophils (%) (Auto) 2.4 % (0.0-3.0) 2.5 % (0.0-3.0) Basophils (%) (Auto) 1.1 % (0.0-2.0) 0.7 % (0.0-2.0) Sodium Level 134 MMOL/L (136-145) 137 MMOL/L (136-145) Potassium Level 4.8 MMOL/L (3.5-5.1) 5.3 MMOL/L (3.5-5.1) Chloride Level 95 MMOL/L (98-107) 96 MMOL/L (98-107) Carbon Dioxide Level 30 MMOL/L (21-32) 29 MMOL/L (21-32) Anion Gap 9 mmol/L (5-15) 12 mmol/L (5-15) Blood Urea Nitrogen 48 mg/dL (7-18) 75 mg/dL (7-18) Creatinine 11.9 MG/DL (0.55-1.30) 16.1 MG/DL (0.55-1.30) Estimat Glomerular Filtration Rate 5.3 mL/min (>60) 3.8 mL/min (>60) Glucose Level 110 MG/DL (74-106) 80 MG/DL (74-106) Calcium Level 9.4 MG/DL (8.5-10.1) 9.0 MG/DL (8.5-10.1) Total Bilirubin 0.4 MG/DL (0.2-1.0) 0.4 MG/DL (0.2-1.0) Aspartate Amino Transf (AST/SGOT) 34 U/L (15-37) 19 U/L (15-37) Alanine Aminotransferase (ALT/SGPT) 40 U/L (12-78) 32 U/L (12-78) Alkaline Phosphatase 100 U/L (46-116) 89 U/L (46-116) Total Protein 9.3 G/DL (6.4-8.2) 8.6 G/DL (6.4-8.2) Albumin 3.5 G/DL (3.4-5.0) 3.3 G/DL (3.4-5.0) Globulin 5.8 g/dL 5.3 g/dL Albumin/Globulin Ratio 0.6 (1.0-2.7) 0.6 (1.0-2.7) C-Reactive Protein, Quantitative 2.5 mg/dL (0.00-0.90) Hemoglobin A1c 4.9 % (4.3-6.0) Lactic Acid Level 0.80 mmol/L (0.4-2.0) Uric Acid 8.7 MG/DL (2.6-7.2) Phosphorus Level 6.8 MG/DL (2.5-4.9) Magnesium Level 2.7 MG/DL (1.8-2.4) Ferritin 718 NG/ML (8-388) Gamma Glutamyl Transpeptidase 18 U/L (5-85) Total Creatine Kinase 152 U/L (26-308) Pro-B-Type Natriuretic Peptide 1528 pg/mL (0-125) Triglycerides Level 34 MG/DL (30-150) Cholesterol Level 138 MG/DL (< 200) LDL Cholesterol 67 mg/dL (<100) HDL Cholesterol 68 MG/DL (40-60) Cholesterol/HDL Ratio 2.0 (3.3-4.4) Vitamin B12 Level 1131 PG/ML (193-986) Folate 13.1 NG/ML (8.6-58.9) Thyroid Stimulating Hormone (TSH) 1.750 uiU/mL (0.358-3.740) Intake and Output Last 48 Hour 05/06/18 05/07/18 05/07/18 05/08/18 19:00 07:00 19:00 07:00 Intake Total 600 ml 300 ml 360 ml Output Total 1800 ml Balance 600 ml 300 ml -1440 ml Intake Oral 600 ml 300 ml 360 ml Output Hemodialysis UF 1800 ml # Voids 1 Last 24 Hour Vital Signs Date Time Temp Pulse Resp B/P (MAP) Pulse Ox O2 Delivery O2 Flow Rate FiO2 05/07/18 13:57 92/60 05/07/18 12:00 96.7 88 18 92/56 (68) 95 05/07/18 11:04 Room Air 05/07/18 09:00 Room Air 05/07/18 08:39 71 120/68 05/07/18 08:00 97.4 84 18 100/74 (83) 95 Assessment and Recs: # Anemia due to chronic kidney disease --> anemia panel to be completed in future, ferritin, tsh, iron panel, crp, esr --> transfuse if hgb less than 7 --> epogen since is on HD # Acute back pain with sciatica --> norco/opiates on prn basis # Right leg pain # Intractable pain # Right shoulder pain --> mri shoulder has been reviewed # Renovascular hypertension # HIV disease --> HAART meds on prn basis # Weakness # ESRD on dialysis --> HD 3x a week # Right shoulder pain - Right shoulder x-ray negative Appreciate consultation greatly! Surinder Baxter MD May 08, 2018 06:35
== END 2018-05-07 16:30 | DRG 551 ==
LOC: EDBD 19:37 → EMR 20:23 → 4E 21:58 → EDBEDREQ 22:30 → 4E 05-06 00:12
PROC: 5A1D70Z Performance of Urinary Filtration, Intermittent, Less than 6 Hours Per Day (ICD-10-PCS; principal; 2018-05-07)
DX: M54.40 Lumbago with sciatica, unspecified side (principal); N18.6 End stage renal disease; B20 Human immunodeficiency virus [HIV] disease; I13.11 Hypertensive heart and chronic kidney disease without heart failure, with stage 5 chronic kidney disease, or end stage renal disease; M79.604 Pain in right leg; M25.511 Pain in right shoulder; I15.0 Renovascular hypertension; Z88.6 Allergy status to analgesic agent
CPT/HCPCS: 36415; 72131; 72148; 72192; 80053; 80061; 80299; 82550; 82607; 82728; 82746; 82962; 82977; 83036; 83605; 83735; 83880; 84100; 84443; 84550; 85025; 86140; 87081; 93971; 99285